=== PATIENT | male | born 1985 | race Caucasian/White ===

== ENCOUNTER 2024-04-25 21:00 | Emergency (ER) | payer MEDICAID | END 2024-04-25 22:21 | LOC: JD.ED 21:00 | DX: F10.129 Alcohol abuse with intoxication, unspecified (principal); F15.129 Other stimulant abuse with intoxication, unspecified | CPT/HCPCS: 99283; 99284 ==

== ENCOUNTER 2025-01-04 13:20 | Emergency (ER) | payer MEDICAID | END 2025-01-04 13:50 | disposition home or self-care (01) | LOC: JD.ED 13:20 | DX: K02.9 Dental caries, unspecified (principal); L91.8 Other hypertrophic disorders of the skin; F17.200 Nicotine dependence, unspecified, uncomplicated; Z79.899 Other long term (current) drug therapy | CPT/HCPCS: 99282 ==